=== PATIENT | male | born 1970 | race Caucasian/White ===

== ENCOUNTER 2022-11-06 15:31 | Emergency (ER) | payer MEDICAID ==
[2022-11-06] MEDS ORDERED: Adenosine 6 MG/2 ML SDV ONE (15:38)
[2022-11-06] MEDS ORDERED: Adenosine 6 MG/2 ML SDV IVPUSH ONE ×2 (15:45)
[2022-11-06] MEDS ORDERED: Diltiazem 25 MG/5 ML SDV IVPUSH ONE (15:46)
[2022-11-06] MEDS ORDERED: Sodium Chloride 0.9% 10 ML Syringe FLUSH PRN (15:48)
[2022-11-06] MEDS ORDERED: Sodium Chloride 0.9% 1,000 ML IV SCH (16:00)
[2022-11-06 16:07] LABS: ESTIMATED GFR 81 mL/min (>60); TROPONIN I HIGH SENSITIVITY 9.8 pg/mL (<=60.3)
== END 2022-11-06 17:00 | disposition home or self-care (01) ==
LOC: JP.ED 15:31
DX: I47.1 Supraventricular tachycardia (principal); I10 Essential (primary) hypertension; Z79.899 Other long term (current) drug therapy
CPT/HCPCS: 36415; 71045; 80053; 84484; 85025; 93005; 96361; 96374; 96375; 99285; J0153; J3490; J7030

== ENCOUNTER 2022-11-11 08:23 | Emergency (ER) | payer MEDICAID ==
[2022-11-11] MEDS ORDERED: LORazepam 0.5 MG Tab PO ONE (08:57)
[2022-11-11] MEDS ORDERED: Aspirin 81 MG Tab.Chew PO ONE (08:57)
[2022-11-11 09:32] LABS: TROPONIN I HIGH SENSITIVITY 5.8 pg/mL (<=60.3)
== END 2022-11-11 10:27 | disposition home or self-care (01) ==
LOC: JP.ED 08:23
DX: F41.0 Panic disorder [episodic paroxysmal anxiety] (principal); I48.91 Unspecified atrial fibrillation; I10 Essential (primary) hypertension; K21.9 Gastro-esophageal reflux disease without esophagitis; Z86.16 Personal history of COVID-19; Z79.899 Other long term (current) drug therapy
CPT/HCPCS: 36415; 80048; 83605; 84484; 85025; 93005; 99285; A9270